=== PATIENT | male | born 1940 ===

== ENCOUNTER 2021-10-09 10:06 | Day surgery (SDC) | payer OTHER | END 2021-10-09 16:15 | disposition home or self-care (01) | LOC: CIR.AMB 10:06 → AMB-ENDOS 10:06 | PROVIDERS: ATTEND Colon & Rectal Surgery | DX: K57.30 Diverticulosis of large intestine without perforation or abscess without bleeding (principal); K64.0 First degree hemorrhoids; Z93.3 Colostomy status ==